=== PATIENT | male | born 1950 | race Caucasian/White ===

== ENCOUNTER 2017-10-01 07:48 | Day surgery (SDC) | payer MEDICARE, BC ==
[2017-10-01] MEDS ORDERED: EPINEPHRINE 1 MG/ML AMPUL SQ ONE (07:49)
[2017-10-01] MEDS ORDERED: NEOMYCIN/POLY./DEXAM OPTH OINT OPTH ONE (07:49)
[2017-10-01] MEDS ORDERED: TETRACAINE HCL 0.5% 15 ML OPTH BTL OPTH ONE (07:49)
[2017-10-01] MEDS ORDERED: PROPOFOL 10 MG/ML VIAL IV ONE (07:49)
[2017-10-01] MEDS ORDERED: LIDOCAINE 2% MDV (20MG/ML) 20ML VIAL IV ONE ×2 (07:49)
[2017-10-01] MEDS ORDERED: CIPROFLOXACIN HCL 0.0015 GM, PHENYLEPHRINE HCL 0.05 GM, KETOROLAC TROMETHAMINE 0.000625 GM MC ONE ×5 (12:45)
--- NOTE | 2017-10-01 16:21 | OP NOTE CHAMES ---
DATE OF PROCEDURE: 10/01/17 PREOPERATIVE DIAGNOSIS: Nuclear sclerotic and posterior subcapsular cataract, left eye. POSTOPERATIVE DIAGNOSIS: Nuclear sclerotic and posterior subcapsular cataract, left eye. OPERATION: Phacoemulsification of cataractous lens with implantation of intraocular lens. LENS IMPLANT USED: Larios Model PCB00 + 21.5 diopters. COMPLICATIONS: None. PROCEDURE IN DETAIL: Following a retrobulbar and facial block, the patient was prepped and draped in the usual fashion for eye surgery. A lid speculum was placed in the left eye after which a 2.4 mm tunnel wound was placed at the temporal limbus and dissected into clear cornea. A paracentesis was placed at 2 oclock hours to the left and right of the initial incision and the chamber deepened with Viscoelastic. The keratome was then used to enter the anterior chamber after which the continuous circular capsulorrhexis was accomplished without difficulty using a bent needle and a Utrata forceps. Hydrodissection and hydrodelineation of the lens was performed after which the nucleus of the lens was removed using the Phaco handpiece in the [id number] technique. The residual cortical material was irrigated and aspirated from the eye after which the bag and chamber were re-examined. The bag was re-inflated with Viscoelastic and the intraocular lens injected into the capsular bag where it centered well. The Viscoelastic was then copiously irrigated and aspirated from the eye after which the temporal tunnel wound and paracentesis were hydrated and the wounds were examined. They were noted to be watertight. The lid speculum was removed from the eye and the eye patched and shielded. The patient was transferred to the recovery room in satisfactory condition and given an appointment to be reexamined in the clinic later today or as directed by Dr. Vences. JOB NUMBER: [id number] [facility]
== END 2017-10-01 10:04 | disposition home or self-care (01) ==
LOC: SUR 07:48
PROVIDERS: ATTEND Ophthalmology
DX: H25.12 Age-related nuclear cataract, left eye (principal); H25.042 Posterior subcapsular polar age-related cataract, left eye; I10 Essential (primary) hypertension; E11.9 Type 2 diabetes mellitus without complications; Z79.84 Long term (current) use of oral hypoglycemic drugs; E78.00 Pure hypercholesterolemia, unspecified
CPT/HCPCS: J0171

== ENCOUNTER 2018-04-20 19:06 | Emergency (ER) | payer MEDICARE, BC ==
[2018-04-20] MEDS ORDERED: MORPHINE SULFATE 10 MG/ML VIAL IVP ONE (19:20)
[2018-04-20] MEDS ORDERED: ONDANSETRON HCL IV 4 MG/2 ML VIAL IVP ONE ×2 (19:20→21:15)
--- NOTE | 2018-04-20 19:26 | Emergency Department Record ---
History of Present Illness - General Chief Complaint: Abdominal Pain Stated Complaint: RT SIDE ABDOMINAL PAIN Time Seen by Provider: 04/20/18 19:20 Source: Patient Mode of Arrival: Ambulatory Limitations: No limitations - History of Present Illness Initial Comments: 67 yo male presents to ED for evaluation of intermittent RUQ pain symptoms that began 2 days ago. Patient reports that his pain symptoms improved 2 days ago with a heating pad to the RUQ, reports that his pain symptoms worsened today. Patient denies any precipitating factors (exertion, food), denies fevers, chills , cough, chest pain, rib pain, or difficulty breathing symptoms. Patient denies previous abdominal surgery. MD Complaint: Abdominal pain Onset/Timin -: Days(s) Location: RUQ Radiation: None Severity: Severe Quality: Aching Consistency: Constant Improves With: Nothing Worsens With: Nothing Associated Symptoms: Nausea Treatments Prior to Arrival: Other (heating pad) - Related Data Previous Rx's Medication Instructions Recorded Famotidine [Pepcid] 40 mg PO DAILY #30 tablet 04/20/18 Allergies Allergy/AdvReac Type Severity Reaction Status Date / Time No Known Drug Allergies Allergy Verified 04/20/18 19:14 Review of Systems Constitutional: Denies: Chills, Fever, Malaise, Night sweats Eyes: Denies: Eye discharge, Eye pain ENT: Denies: Congestion, Ear pain, Epistaxis Respiratory: Denies: Cough, Dyspnea Cardiovascular: Denies: Chest pain, Dyspnea on exertion Endocrine: Denies: Fatigue, Heat or cold intolerance Gastrointestinal: Reports: Abdominal pain, Nausea. Denies: Vomiting Genitourinary: Denies: Incontinence, Retention Musculoskeletal: Denies: Arthralgia, Back pain, Gout, Joint swelling Skin: Denies: Bruising, Change in color Neurological: Denies: Abnormal gait, Confusion, Headache Psychiatric: Denies: Anxiety Hematological/Lymphatic: Denies: Anemia, Blood Clots Past Medical History - SOCIAL HISTORY Smoking Status: Never smoker - RESPIRATORY Hx Respiratory Disorders: No - CARDIOVASCULAR Hx Cardio Disorders: Yes Hx Hypertension: Yes Hx Irregular Heartbeat: Yes (no treatment required per pt per cardilogist) Hx Palpitations: Yes (30 years ago, no treatment required, occurs occassional) Comment:: rx for cholesterol - NEURO Hx Neuro Disorders: No - GI Hx GI Disorders: Yes Hx Abdominal Pain: Yes (went to ER last summer, no findings, has occured once 2 months ago) Comment:: diverticulosis - Hx Genitourinary Disorders: No - ENDOCRINE Hx Endocrine Disorders: Yes Hx Diabetes: Yes Comment:: A1C runs 5.9-6.1 - MUSCULOSKELETAL Hx Musculoskeletal Disorders: No - PSYCH Hx Psych Problems: Yes Hx Anxiety: Yes (had attack once6-8 months ago) - HEMATOLOGY/ONCOLOGY Hx Hematology/Oncology Disorders: Yes Hx Cancer: Yes (Skin (Nose)) Hx Chemotherapy: No Hx Radiation Therapy: No Family Medical History Hx Cancer: Mother *Cancer Comment: bone marrow cancer Hx Heart Disease: Father *Heart Comment: rhumatic fever-enlarged heart Physical Exam - General General Appearance: Alert, Oriented x3, Cooperative, Moderate distress Limitations: No limitations - Head Head exam: Atraumatic, Normocephalic, Normal inspection Head exam detail: negative: Abrasion, Contusion, John's sign, General tenderness, Hematoma, Laceration - Eye Eye exam: Normal appearance. negative: Conjunctival injection, Periorbital swelling, Periorbital tenderness, Scleral icterus - ENT Ear exam: negative: Auricular hematoma, Auricular trauma Nasal Exam: negative: Active bleeding, Discharge, Dried blood, Foreign body Mouth exam: negative: Drooling, Laceration, Muffled voice, Tongue elevation - Neck Neck exam: Normal inspection. negative: Tenderness - Respiratory Respiratory exam: Normal lung sounds bilaterally. negative: Chest wall tenderness, Respiratory distress, Rhonchi, Stridor, Wheezes - Cardiovascular Cardiovascular Exam: Regular rate, Normal rhythm, Normal heart sounds - GI/Abdominal GI/Abdominal exam: Soft, Tenderness (TTP to the RUQ, no rebound, no guarding present.). negative: Rebound, Rigid - Rectal Rectal exam: Deferred - exam: Deferred - Extremities Extremities exam: Normal inspection. negative: Calf tenderness, Tenderness - Back Back exam: Denies: CVA tenderness (R), CVA tenderness (L) - Neurological Neurological exam: Alert, Normal gait, Oriented X3 - Psychiatric Psychiatric exam: Normal affect, Normal mood - Skin Skin exam: Normal color. negative: Abrasion Type of lesion: negative: abrasion Course - Reevaluation(s) Reevaluation #1: 04/20/18 19:25 Patient was seen and examined, as US is not available for evaluation of the GB, will obtain laboratory studies and CT imaging following analgesia and anti- emetics for his symptoms. Reevaluation #2: 04/20/18 20:00 Labs reviewed and are grossly unremarkable for an acute process. UA pending. Patient is going to CT at this time. Reevaluation #3: 04/20/18 21:16 CT Abdomen and Pelvis: Renal/Hepatic cysts Diverticulosis without diverticulitis Doudenal diverticulum Small adrenal nodule, recommend MRI as outpatient Patient and his SO were updated on CT imaging results (including need for addition MRI as outpatient for adrenal nodule), will adminster Zofran for nausea symptoms, EKG, and reassess. Patient and SO agree with the plan as discussed. Reevaluation #4: 04/20/18 21:29 EKG: NSR 58, PVCs are present LAD, IVCD no acute ST-T wave changes Reevaluation #5: 04/20/18 22:06 Patient was reassessed following GI coctail, reports that he is feeling much better and that he want to go at this time. Patient has a follow-up appointment with Dr. Temple at 9:40 in the morning. Will initiate PPI with instructions for outpatient EGD and possible US of the abdomen for further evaluation. Patient was instructed to return to ED if his symptoms worsen. Patient appears stable for discharge at this time. Medical Decision Making - Lab Data Result diagrams: 04/20/18 19:25 04/20/18 19:25 Disposition Disposition: Discharge Clinical Impression: Epigastric abdominal pain Disposition: Home, Self-Care Condition: (2) Stable Instructions: Epigastric Pain (ED) Additional Instructions: Return to ED if your symptoms worsen or if you have any concerns. Pepcid as directed. Follow-up with Dr. Temple tomorrow as scheduled. Ultrasound of the abdomen and possible EGD may be of benefit for further assessment of your pain symptoms. Prescriptions: Famotidine [Pepcid] 40 mg PO DAILY #30 tablet Forms: Patient Portal Access Time of Disposition: 22:10 Quality - Quality Measures Quality Measures: N/A - Blood Pressure Screening Does Patient Have Any of the Following: Active Dx of HTN Blood Pressure Classification: Hypertensive Reading Systolic Measurement: 193 Diastolic Measurement: 96 Screening for High Blood Pressure: Patient Exclusion, Hx of HTN [G9744]
[2018-04-20] MEDS ORDERED: 0.9 % SODIUM CHLORIDE 1000ML 1,000 ML IV SCH (19:30)
[2018-04-20 19:34] LABS: BASO % 0.2 % (0-6); EOS % 0.5 % (0-6); GRAN % 72.4 % (47-80); HEMATOCRIT 40.8 % (42.0-52.0); LYMPH % 19.2 % (16-45); MEAN CELL VOLUME 89.3 fl (81-97); MEAN CORPUSCULAR HEMOGLOBIN 30.6 pg (27-33); MEAN CORPUSCULAR HGB CONC 34.3 g/dl (32-36); MEAN PLATELET VOLUME 10.2 fl (7.4-10.4); MONO % 7.7 % (0-9); PLATELET COUNT 135 K/uL (130-400); RED BLOOD COUNT 4.57 M/uL (4.40-5.70); RED CELL DISTRIBUTION WIDTH 13.5 % (11.5-14.5); WHITE BLOOD COUNT W/O DIFF 8.1 K/uL (4.2-12.2)
[2018-04-20 19:46] LABS: BLOOD UREA NITROGEN 20 mg/dL (8-23); CREATININE 1.1 mg/dL (0.7-1.2); EST GLOMERULAR FILTRATION RATE > 60 mL/min
[2018-04-20 19:47] LABS: TOTAL PROTEIN 7.6 g/dL (6.6-8.7)
[2018-04-20 19:49] LABS: GLUCOSE,RANDOM 139 mg/dL (74-109)
[2018-04-20 19:52] LABS: ALB/GLOB RATIO 1.6 (1.1-1.8); ALBUMIN 4.7 g/dL (4.0-5.0); ALKALINE PHOSPHATASE 45 U/L (40-129); ALT/SGPT 25 U/L (<41); AST/SGOT 29 U/L (10.0-50.0); LIPASE 38 U/L (13-60)
[2018-04-20 20:50] LABS: URINE APPEARANCE CLEAR; URINE BILIRUBIN NEGATIVE (NEGATIVE); URINE BLOOD NEGATIVE (NEGATIVE); URINE COLOR YELLOW; URINE GLUCOSE (UA) NEGATIVE (NEGATIVE); URINE KETONE TRACE (NEGATIVE); URINE LEUKOCYTE ESTERASE NEGATIVE (NEGATIVE); URINE NITRITE NEGATIVE (NEGATIVE); URINE PROTEIN NEGATIVE (NEGATIVE); URINE UROBILINOGEN 0.2 E.U./dL (0.20 - 1.00)
[2018-04-20] MEDS: MAGNESIUM HYDROXIDE/AL HYDROX 30 ML, LIDOCAINE VISC 2% 15ML 15 ML PO ONE ×4 (21:08→21:55)
== END 2018-04-20 22:23 | disposition home or self-care (01) ==
LOC: ER 19:06
DX: R10.13 Epigastric pain (principal); R11.0 Nausea; I10 Essential (primary) hypertension; E11.9 Type 2 diabetes mellitus without complications
CPT/HCPCS: 99284 ×2; 96376; 96374; 96375; 83690; 85025; 80053; 81003; 84484; 74177; 93005; 93010; Q9967; J2405; J2270; J7030

== ENCOUNTER 2019-07-08 05:25 | Emergency (ER) | payer MEDICARE, BC ==
[2019-07-08] MEDS ORDERED: ONDANSETRON HCL IV 4 MG/2 ML VIAL IVP ONE ×3 (05:37→07:32)
[2019-07-08] MEDS ORDERED: 0.9 % SODIUM CHLORIDE 1,000 ML BAG IV ONE (05:37)
[2019-07-08] MEDS ORDERED: MORPHINE SULFATE 5 MG/ML VIAL IVP ONE (05:40)
--- NOTE | 2019-07-08 05:43 | Emergency Department Record ---
History of Present Illness <José Miguel Osorio - Last Filed: 07/08/19 09:05> - General Source: Patient Mode of Arrival: Ambulatory Limitations: No limitations - History of Present Illness Initial Comments: 69 yo male presents with abdominal pain. The onset was 1am. The pain is in the epigastric area with some radiation to the right side. The pain is associated with nausea and dry heaves. He reports that he has had pancreatitis several times in the last 2-3 years. He states in October he was diagnosed at [facility] pancreatitis of unknown cause. He does not drink. No gall stones. No specific medication was found to cause his symptoms. He reports having US, CT, HIDA, and endoscopy. Dr Temple is his PCP. No chest pain, no back pain. His did have a few loose stools the last 2 days. No blood in the stools. He has a history of HTN, DM, elevated cholesterol. He had a cardiology work up in October during his hospitalization and followed up with a 30 day monitor. He also had a stress test after the October admission to [facility] Complaint: Abdominal pain -: Hour(s) (4) Location: Epigastric Radiation: RUQ Migration to: RUQ Severity: Moderate Quality: Aching Consistency: Constant Improves With: Nothing Worsens With: Eating Associated Symptoms: Anorexia, Nausea, Vomiting <KALIE MEREDITH - Last Filed: 07/08/19 18:31> - General Chief Complaint: Abdominal Pain Stated Complaint: ABDOMINAL PAIN Time Seen by Provider: 07/08/19 05:27 - Related Data Home Medications Medication Instructions Recorded Confirmed Last Taken C,E,Zinc,Copper 11/Qwyma7q/Lut 1 cap PO DAILY 07/08/19 07/08/19 07/07/19 [Ocuvite Adult 50 Plus Softgel] Hyoscyamine Sulfate [Levsin Odt] 1 tab PO ASDIR 07/08/19 07/08/19 07/07/19 RX: Metoprolol Succinate 25 mg PO DAILY 07/08/19 07/08/19 07/07/19 RX: Simvastatin 40 mg PO DAILY 07/08/19 07/08/19 07/07/19 Previous Rx's Medication Instructions Recorded Sucralfate [Carafate] 1 gm PO QID #28 tablet 07/08/19 Allergies Allergy/AdvReac Type Severity Reaction Status Date / Time No Known Drug Allergies Allergy Verified 04/20/18 19:14 Past Medical History - SOCIAL HISTORY Smoking Status: Never smoker - RESPIRATORY Hx Respiratory Disorders: No - CARDIOVASCULAR Hx Cardio Disorders: Yes Hx Hypertension: Yes Hx Irregular Heartbeat: Yes (no treatment required per pt per cardilogist) Hx Palpitations: Yes (30 years ago, no treatment required, occurs occassional) Comment:: rx for cholesterol - NEURO Hx Neuro Disorders: No - GI Hx GI Disorders: Yes Hx Abdominal Pain: Yes (went to ER last summer, no findings, has occured once 2 months ago) Comment:: diverticulosis - Hx Genitourinary Disorders: No - ENDOCRINE Hx Endocrine Disorders: Yes Hx Diabetes: Yes Comment:: A1C runs 5.9-6.1 - MUSCULOSKELETAL Hx Musculoskeletal Disorders: No - PSYCH Hx Psych Problems: Yes Hx Anxiety: Yes (had attack once6-8 months ago) - HEMATOLOGY/ONCOLOGY Hx Hematology/Oncology Disorders: Yes Hx Cancer: Yes (Skin (Nose)) Hx Chemotherapy: No Hx Radiation Therapy: No <KALIE MEREDITH - Last Filed: 07/08/19 18:31> Family Medical History Hx Cancer: Mother *Cancer Comment: bone marrow cancer Hx Heart Disease: Father *Heart Comment: rhumatic fever-enlarged heart <KALIE MEREDITH - Last Filed: 07/08/19 18:31> Course Vital Signs 07/08/19 07/08/19 05:33 06:30 Temperature 97.9 F Pulse Rate [ 51 L 83 Pulse Ox Probe] Respiratory 20 Rate Blood Pressure 193/79 163/95 [Left Arm] Pulse Ox 96 100 - Reevaluation(s) Reevaluation #2: The patient is doing better at this time. His CT did return with no cause for the pain and was basically normal with no surgical pathology. I did discuss the plan with the patient to F/U with his PCP. Presently the patient is doing a lot better and only has very mild upper abdominal discomfort. He does feel comfortable with going home and following up with his PCP. 07/08/19 07:26 Reevaluation #3: The patient did have a return of significant nausea. Due to that I did give him a dose of Phenergan. He did have an irregular heart beat on the monitor and a 2nd EKG was done that did not have any significant changes. The patient has a hx of ectopy and it was unchanged from an old EKG. He has not had any CP or SOB or OLIVIA with the AP. 07/08/19 08:14 Reevaluation #4: The patient is doing very well at this time. He denies any pain or nausea. The patient does appear to be in atrial bigeminy which is chronic for him. Presently he is up walking and hungry and he denies any nausea or abdominal discomfort. I did discuss the plan to return to the ER for any worsening symptoms. I strongly doubt any significant issue relating to his heart due to the fact his bigeminy is chronic, he has had a neg nuclear stress test this year along with a cardiac echo and holter monitor. 07/08/19 09:01 <José Miguel Osorio - Last Filed: 07/08/19 09:05> Vital Signs 07/08/19 05:33 Temperature 97.9 F Pulse Rate [ 51 L Pulse Ox Probe] Respiratory 20 Rate Blood Pressure 193/79 [Left Arm] Pulse Ox 96 - Reevaluation(s) Reevaluation #1: EKG #1: 05:44 Rate: 70 Rhythm: Ventricular bigemny [place]: Left Intervals: IVCD, OR 202, Qt 504 ST segments: Poor R wave progression, No acute ST abnormalities Prior: 04/20/18 No new changes. [facility] was reviewed. The patient had an EP consultation for possible AV block. Bigemny noted in EP consultation as well. No 2nd degree block. 07/08/19 06:08 CBC reviewed No acute process The CMP was reviewed. No significant abnormality The Lipase is normal [facility] reviewed HIDA scan in 2018 Normal EF of gall bladder CT scan Abdomen. diverticulosis 10/07/18 MRI of the Abdomen. Possible narrow CBD. NO stones. 10/07/18 Lipase was 4484 10/20/18 EGD by Felipe. No abnormality found 07/08/19 06:22 The labs were reviewed with the patient. The patient reports his nausea and pain are improved but not gone. Given the pain a CT of the abdomen was ordered. 07/08/19 07:[address] is pending. The case was signed out to Dr Osorio at shift turn over. <KALIE MEREDITH - Last Filed: 07/08/19 18:31> Medical Decision Making - Lab Data Result diagrams: 07/08/19 05:40 07/08/19 05:40 Lab Results 07/08/19 07/08/19 Range/Units 05:40 05:40 WBC 7.8 (4.2-12.2) K/uL RBC 4.51 (4.40-5.70) M/uL Hgb 13.8 L (14.0-18.0) gm/dl Hct 40.6 L (42.0-52.0) % MCV 90.0 (81-97) fl MCH 30.5 (27-33) pg MCHC 34.0 (32-36) g/dl RDW 13.3 (11.5-14.5) % Plt Count 121 L (130-400) K/uL MPV 10.6 H (7.4-10.4) fl Gran % 75.8 (47-80) % Lymphocytes % 17.9 (16-45) % Monocytes % 5.6 (0-9) % Eosinophils % 0.4 (0-6) % Basophils % 0.3 (0-6) % Absolute Neutrophils 5.94 Sodium 138 (136-145) mmol/L Potassium 4.1 (3.4-4.5) mmol/L Chloride 101 (98-107) mmol/L Carbon Dioxide 25.0 (22-29) mmol/L Anion Gap 12.0 (7-16) BUN 21 (8-23) mg/dL Creatinine 1.0 (0.7-1.2) mg/dL Estimated GFR > 60 mL/min Random Glucose 184 H (74-109) mg/dL Calcium 9.2 (8.8-10.2) mg/dL Total Bilirubin 0.40 (0.2-1.0) mg/dL AST 20 (10.0-50.0) U/L ALT 18 (<41) U/L Alkaline Phosphatase 48 (40-129) U/L Total Protein 7.2 (6.6-8.7) g/dL Albumin 4.4 (4.0-5.0) g/dL Globulin 2.8 (1.4-4.8) gm/dL Albumin/Globulin Ratio 1.6 (1.1-1.8) Lipase 43 (13-60) U/L <José Miguel Osorio - Last Filed: 07/08/19 09:05> - Lab Data Result diagrams: 07/08/19 05:40 07/08/19 05:40 <KALIE MEREDITH - Last Filed: 07/08/19 18:31> Disposition Disposition: Discharge Time of Disposition: 07:28 <José Miguel Osorio - Last Filed: 07/08/19 09:05> Disposition: Discharge <KALIE MEREDITH - Last Filed: 07/08/19 18:31> Clinical Impression: Abdominal pain Qualifiers: Abdominal location: unspecified location Qualified Code(s): R10.9 - Unspecified abdominal pain Disposition: Home, Self-Care Condition: (1) Good Instructions: Abdominal Pain (ED) Additional Instructions: Please continue your regular medicines and please take the Carafate as directed. Please return to the ER for any worsening pain, vomiting, or fever. Prescriptions: Sucralfate [Carafate] 1 gm PO QID #28 tablet Forms: Patient Portal Access Quality - Quality Measures Quality Measures: N/A - Blood Pressure Screening View Details: Yes Does Patient Have Any of the Following: Active Dx of HTN Blood Pressure Classification: Hypertensive Reading Systolic Measurement: 176 Diastolic Measurement: 79 Screening for High Blood Pressure: Patient Exclusion, Hx of HTN [G9744] <José Miguel Osorio - Last Filed: 07/08/19 09:05> - Quality Measures Quality Measures: N/A - Blood Pressure Screening Does Patient Have Any of the Following: No, Active Dx of HTN Blood Pressure Classification: Hypertensive Reading Systolic Measurement: 176 Diastolic Measurement: 79 Screening for High Blood Pressure: Patient Exclusion, Hx of HTN [G9744] <KALIE MEREDITH - Last Filed: 07/08/19 18:31>
[2019-07-08 05:48] LABS: ABSOLUTE NEUTROPHIL COUNT 5.94; BASO % 0.3 % (0-6); EOS % 0.4 % (0-6); GRAN % 75.8 % (47-80); HEMATOCRIT 40.6 % (42.0-52.0); HEMOGLOBIN 13.8 gm/dl (14.0-18.0); LYMPH % 17.9 % (16-45); MEAN PLATELET VOLUME 10.6 fl (7.4-10.4); MONO % 5.6 % (0-9); PLATELET COUNT 121 K/uL (130-400); RED BLOOD COUNT 4.51 M/uL (4.40-5.70); RED CELL DISTRIBUTION WIDTH 13.3 % (11.5-14.5); WHITE BLOOD COUNT W/O DIFF 7.8 K/uL (4.2-12.2)
[2019-07-08 05:49] LABS: MEAN CORPUSCULAR HEMOGLOBIN 30.5 pg (27-33)
[2019-07-08 06:02] LABS: BLOOD UREA NITROGEN 21 mg/dL (8-23); EST GLOMERULAR FILTRATION RATE > 60 mL/min
[2019-07-08 06:03] LABS: LIPASE 43 U/L (13-60); TOTAL PROTEIN 7.2 g/dL (6.6-8.7)
[2019-07-08 06:05] LABS: GLUCOSE,RANDOM 184 mg/dL (74-109)
[2019-07-08 06:08] LABS: ALB/GLOB RATIO 1.6 (1.1-1.8); ALBUMIN 4.4 g/dL (4.0-5.0); ALKALINE PHOSPHATASE 48 U/L (40-129); ALT/SGPT 18 U/L (<41); AST/SGOT 20 U/L (10.0-50.0)
[2019-07-08] MEDS ORDERED: MAGNESIUM HYDROXIDE/AL HYDROX 30 ML, LIDOCAINE VISC 2% 15ML 15 ML PO ONE ×2 (06:22)
--- NOTE | 2019-07-08 07:15 | CT SCAN REPORT ---
EXAMINATION: CT Abdomen and Pelvis with IV Contrast EXAM DATE: 07/08/2019 7:02 AM TECHNIQUE: CT imaging of the abdomen and pelvis was performed with intravenous contrast. Coronal and sagittal images were reconstructed. IV Contrast: The amount and type of contrast are recorded in the medical record. INDICATION: epigastric pain COMPARISON: Abdomen ultrasound 04/21/2018, AP CT 04/20/2018 ENCOUNTER: Not applicable CT ABDOMEN AND PELVIS FINDINGS: Lung Bases: Included extent of the lung bases are clear. Coronary artery calcifications. Hepatobiliary: The liver has a normal size with a smooth surface. The hepatic and portal veins appear patent. Stable subcentimeter hepatic hypodensity too small to characterize. No gallstones. Probable gallbladder sludge Pancreas: The pancreas is normal. Spleen: The spleen is not enlarged. Multiple granuloma Adrenals: Stable 1.7 cm left adrenal nodule Kidneys, Ureters, & Bladder: Stable right renal cysts. No renal or ureteral calculi. No obstructive u ropathy. Both ureters have a normal caliber and the urinary bladder is unremarkable. Gastrointestinal: Stomach unremarkable. Small duodenal diverticulum. No bowel obstruction. Normal emiliana endix. Mild diverticulosis coli. No diverticulitis. Reproductive Organs: Unremarkable Lymphatic System: There is no adenopathy within the abdomen or pelvis. Nonspecific periaortic lymph n odes largest 6.6 mm short axis Vasculature: Normal caliber abdominal aorta. Peritoneum: No free fluid, free air, or inflammation Abdominal Wall & Musculoskeletal: No suspicious bone lesions. IMPRESSION: 1. No acute abnormality 2. Coronary artery disease 3. Stable subcentimeter hepatic hypodensity 4. Gallbladder sludge 5. Duodenal diverticulum 6. Stable right renal cyst 7. Diverticulosis coli 8. Stable 1.7 cm left adrenal nodule 9. Granulomatous Dictated by: Fox Sparks MD on 07/08/2019 7:02 AM. .
[2019-07-08] MEDS ORDERED: PROMETHAZINE HCL 12.5 MG in 0.9 % SODIUM CHLORIDE 100ML 100 ML IVPB ONE (07:32)
[2019-07-08] MEDS ORDERED: SUCRALFATE 1 G/10 ML UD PO ONE (07:58)
== END 2019-07-08 09:06 | disposition home or self-care (01) ==
LOC: ER 05:25
DX: R10.13 Epigastric pain (principal); R11.2 Nausea with vomiting, unspecified; I10 Essential (primary) hypertension; E11.9 Type 2 diabetes mellitus without complications
CPT/HCPCS: 99284 ×2; 96365; 96375; 83690; 85025; 80053; 84484; 74177; 93005; 93010; Q9967; J2405; J2550; J7030

== ENCOUNTER 2019-07-17 03:23 | Emergency (ER) | payer MEDICARE, BC ==
[2019-07-17] MEDS ORDERED: ONDANSETRON HCL IV 4 MG/2 ML VIAL IV ONE (03:44)
[2019-07-17] MEDS ORDERED: MORPHINE SULFATE 5 MG/ML VIAL IVP ONE (03:45)
--- NOTE | 2019-07-17 03:53 | Emergency Department Record ---
History of Present Illness - General Chief Complaint: Abdominal Pain Stated Complaint: LUQ PAIN Time Seen by Provider: 07/17/19 03:35 Source: Patient Mode of Arrival: Ambulatory Limitations: No limitations - History of Present Illness Initial Comments: The patient is here due to RUQ AP that started last evening 8 hours ago after eating pizza. The pain is sharp and stabbing and does radiate to the back at times. The patient has had nausea and vomiting x 2 with it tonight. The patient has a hx of similar issues and did have almost the exact same issue last week on the 6th when he presented to the ER with the exact same issues. His workup then was neg including and abdominal CT. The patient does have a hx of pancreatitis but does not drink alcohol and has no hx of gallstones. MD Complaint: Abdominal pain Onset/Timin -: Hour(s) Location: RUQ Severity scale (1-10): 7 Quality: Aching, Cramping Consistency: Constant Improves With: Nothing Worsens With: Other Associated Symptoms: Denies other symptoms - Related Data Allergies Allergy/AdvReac Type Severity Reaction Status Date / Time No Known Drug Allergies Allergy Verified 04/20/18 19:14 Travel Screening - Travel/Exposure Within Last 30 Days Have you traveled within the last 30 days?: No - Travel/Exposure Within Last Year Have you traveled outside the [place] in the last year?: No - Additonal Travel Details Have you been exposed to anyone with a communicable illness?: No - Travel Symptoms Symptom Screening: None Review of Systems Constitutional: Denies: Chills, Fever Eyes: Denies: Eye discharge ENT: Denies: Congestion Respiratory: Denies: Cough, Dyspnea Cardiovascular: Denies: Chest pain Endocrine: Denies: Fatigue Gastrointestinal: Reports: Abdominal pain, Nausea, Vomiting. Denies: Diarrhea Genitourinary: Denies: Dysuria Musculoskeletal: Denies: Arthralgia Skin: Denies: Bruising Past Medical History - SOCIAL HISTORY Smoking Status: Never smoker Alcohol Use: None Drug Use: None - RESPIRATORY Hx Respiratory Disorders: No - CARDIOVASCULAR Hx Cardio Disorders: Yes Hx Hypertension: Yes Hx Irregular Heartbeat: Yes (no treatment required per pt per cardilogist) Hx Palpitations: Yes (30 years ago, no treatment required, occurs occassional) Comment:: rx for cholesterol - NEURO Hx Neuro Disorders: No - GI Hx GI Disorders: Yes Hx Abdominal Pain: Yes (went to ER last summer, no findings, has occured once 2 months ago) - Hx Genitourinary Disorders: No - ENDOCRINE Hx Endocrine Disorders: Yes Hx Diabetes: Yes Comment:: A1C runs 5.9-6.1 - MUSCULOSKELETAL Hx Musculoskeletal Disorders: No - PSYCH Hx Psych Problems: Yes Hx Anxiety: Yes (had attack once6-8 months ago) - HEMATOLOGY/ONCOLOGY Hx Hematology/Oncology Disorders: Yes Hx Cancer: Yes (Skin (Nose)) Hx Chemotherapy: No Hx Radiation Therapy: No Family Medical History Any Significant Family History?: Yes Hx Cancer: Mother *Cancer Comment: bone marrow cancer Hx Heart Disease: Father *Heart Comment: rhumatic fever-enlarged heart Physical Exam - General General Appearance: Alert, Oriented x3, Cooperative, No acute distress - Head Head exam: Atraumatic, Normocephalic, Normal inspection - Eye Eye exam: Normal appearance, PERRL, EOMI - ENT Throat exam: Normal inspection. negative: Tonsillar erythema, Tonsillar exudate - Neck Neck exam: Normal inspection, Full ROM. negative: Tenderness - Respiratory Respiratory exam: Normal lung sounds bilaterally. negative: Respiratory distress - Cardiovascular Cardiovascular Exam: Regular rate, Normal rhythm, Normal heart sounds - GI/Abdominal GI/Abdominal exam: Soft, Normal bowel sounds. negative: Distended, Guarding, Rebound, Rigid, Tenderness - Extremities Extremities exam: Normal inspection, Full ROM, Normal capillary refill. negative: Tenderness - Neurological Neurological exam: Alert, Normal gait. negative: Abnormal gait, Motor sensory deficit - Psychiatric Psychiatric exam: negative: Anxious - Skin Skin exam: negative: Rash Course Vital Signs 07/17/19 07/17/19 03:26 03:42 Temperature 98.3 F Pulse Rate [ 33 L 62 Left] Respiratory 16 Rate Blood Pressure 173/73 [Left] Pulse Ox 96 - Reevaluation(s) Reevaluation #1: The patient is doing a lot better at this time. His pain has resolved and his nausea is gone also. The patient feels much better and would like to go home. 07/17/19 04:28 Reevaluation #2: The patient is doing very well at this time. His symptoms have gone away 100%. I did discuss the fact that this episode seems to be his gallbladder since it was precipitated by eating pizza and the pain is located over the RUQ. I did discuss with the patient that the safest course of action is to get an US this AM at another hospital but the patient is refusing that plan. I then discussed the need to return tomorrow for the test. The patient does appear to be in atrial bigeminy on the monitor and EKG but that is a chronic condition for him and he denies ANY CP, SOB, OLIVIA or sweating. I strongly doubt any cardiac issue contributing to the RUQ pain that he was experiencing. On repeat exam the patient has NO abdominal tenderness, guarding or rebound. 07/17/19 04:48 Reevaluation #3: I did offer to refer the patient to cardiology due to the atrial bigeminy but the patient is refusing that plan. He states he had all the tests done with Dr. Moran this year in October and is refusing that plan. 07/17/19 05:00 Medical Decision Making - Data Complexity MDM Data: Labs Ordered and/or Reviewed, EKG Ordered and/or Reviewed - Lab Data Result diagrams: 07/17/19 03:50 07/17/19 03:50 Lab Results 07/17/19 Range/Units 03:48 C-Reactive Protein Cancelled - EKG Data -: EKG Interpreted by Me EKG: No Acute Changes, Unchanged From Previous (The patient is in atrial bigeminy which is chronic for the patient.) Disposition Disposition: Discharge Clinical Impression: Abdominal pain Disposition: Home, Self-Care Condition: (2) Stable Instructions: Abdominal Pain (ED) Additional Instructions: Please do NOT eat any fatty or fried foods and no pizza. Please return tomorrow for recheck and for the abdominal US. If you choose not to return tomorrow please see your family doctor to get the US ordered and also possibly a HIDA scan. Return to the ER sooner for any worsening symptoms. Forms: Patient Portal Access Time of Disposition: 04:48 Quality - Quality Measures Quality Measures: N/A - Blood Pressure Screening View Details: Yes Does Patient Have Any of the Following: Active Dx of HTN Blood Pressure Classification: Hypertensive Reading Systolic Measurement: 173 Diastolic Measurement: 73 Screening for High Blood Pressure: Patient Exclusion, Hx of HTN [G9744]
[2019-07-17 04:01] LABS: ABSOLUTE NEUTROPHIL COUNT 5.23; BASO % 0.4 % (0-6); EOS % 0.6 % (0-6); GRAN % 73.3 % (47-80); HEMATOCRIT 38.4 % (42.0-52.0); LYMPH % 19.1 % (16-45); MEAN CELL VOLUME 89.9 fl (81-97); MEAN CORPUSCULAR HEMOGLOBIN 30.4 pg (27-33); MEAN CORPUSCULAR HGB CONC 33.9 g/dl (32-36); MONO % 6.6 % (0-9); PLATELET COUNT 154 K/uL (130-400); RED BLOOD COUNT 4.27 M/uL (4.40-5.70); RED CELL DISTRIBUTION WIDTH 13.1 % (11.5-14.5); WHITE BLOOD COUNT W/O DIFF 7.1 K/uL (4.2-12.2)
[2019-07-17 04:05] LABS: URINE APPEARANCE CLEAR; URINE BILIRUBIN NEGATIVE (NEGATIVE); URINE BLOOD NEGATIVE (NEGATIVE); URINE COLOR YELLOW; URINE GLUCOSE (UA) NEGATIVE (NEGATIVE); URINE KETONE NEGATIVE (NEGATIVE); URINE LEUKOCYTE ESTERASE NEGATIVE (NEGATIVE); URINE NITRITE NEGATIVE (NEGATIVE); URINE PROTEIN TRACE (NEGATIVE); URINE UROBILINOGEN 0.2 E.U./dL (0.20 - 1.00)
[2019-07-17 04:12] LABS: BLOOD UREA NITROGEN 18 mg/dL (8-23); CREATININE 1.1 mg/dL (0.7-1.2); EST GLOMERULAR FILTRATION RATE > 60 mL/min
[2019-07-17 04:13] LABS: LIPASE 41 U/L (13-60); TOTAL PROTEIN 6.7 g/dL (6.6-8.7)
[2019-07-17 04:15] LABS: GLUCOSE,RANDOM 164 mg/dL (74-109)
[2019-07-17 04:17] LABS: ALT/SGPT 17 U/L (<41); AST/SGOT 19 U/L (10.0-50.0)
[2019-07-17 04:18] LABS: ALKALINE PHOSPHATASE 42 U/L (40-129); BILIRUBIN,DIRECT < 0.2 mg/dL (0-0.3); C-REACTIVE PROTEIN 0.33 mg/dL (<0.5)
== END 2019-07-17 05:23 | disposition home or self-care (01) ==
LOC: ER 03:23
DX: R10.11 Right upper quadrant pain (principal); R11.2 Nausea with vomiting, unspecified; I10 Essential (primary) hypertension; E11.9 Type 2 diabetes mellitus without complications
CPT/HCPCS: 80048; 80076; 81003; 83605; 83690; 84484; 85025; 86140; 93005; 93010; J2405

== ENCOUNTER 2019-07-17 16:43 | Day surgery (SDC) | payer MEDICARE, BC ==
[2019-07-17] MEDS ORDERED: ONDANSETRON HCL IV 4 MG/2 ML VIAL IVP ONE ×3 (16:49→18:43)
[2019-07-17] MEDS ORDERED: 0.9 % SODIUM CHLORIDE 1000ML 1,000 ML IV ONE (16:49)
--- NOTE | 2019-07-17 17:00 | Emergency Department Record ---
History of Present Illness - General Chief Complaint: Abdominal Pain Stated Complaint: ABD PAIN/VOMITTING Time Seen by Provider: 07/17/19 16:49 Source: Patient, Family Mode of Arrival: Ambulatory Limitations: No limitations - History of Present Illness Initial Comments: 69 yo male returns to the ED with nausea, vomiting and abdominal pain. The patient was seen in the ED this morning. He was also seen on 07/08/19. He has had recurrent RUQ pain, vomiting, and pancreatitis. He does not drink alcohol. He has had sludge in his gall bladder on US but no stones (2018 study). He has been admitted to [facility] in the past undergoing extensive work up. Last night it was after eating pizza the evening prior. He developed the symptoms in the last evening and persisted until he was seen in the ED. He was similarly eating pizza on the when he presented. His abdominal CT was negative for acute process on the . He was discharged home in the bag sewer and took a three hour nap. He had a return of the symptoms as soon as he woke up and began vomiting with the same RUQ pain. Dr Temple is his PCP. Complaint: Abdominal pain, Other (Vomiting) -: Days(s) (1) Location: RUQ, RLQ Radiation: RUQ, RLQ Migration to: RUQ Severity: Moderate Quality: Aching, Sharp, Stabbing Consistency: Constant Improves With: Nothing Worsens With: Nothing Associated Symptoms: Anorexia - Related Data Allergies Allergy/AdvReac Type Severity Reaction Status Date / Time No Known Drug Allergies Allergy Verified 07/17/19 17:10 Review of Systems Constitutional: Denies: Chills, Fever, Malaise, Weakness Eyes: Denies: Eye discharge ENT: Denies: Congestion, Throat pain Respiratory: Denies: Cough, Dyspnea Cardiovascular: Denies: Chest pain, Palpitations, Syncope Endocrine: Denies: Fatigue, Polydipsia, Polyuria Gastrointestinal: Reports: As per HPI, Abdominal pain, Nausea, Vomiting. Denies: Diarrhea Genitourinary: Denies: Dysuria, Frequency, Hematuria Musculoskeletal: Denies: Arthralgia, Back pain, Myalgia Skin: Denies: Bruising, Change in color, Rash Neurological: Denies: Headache Psychiatric: Denies: Anxiety Hematological/Lymphatic: Denies: Easy bleeding, Easy bruising Past Medical History - SOCIAL HISTORY Smoking Status: Never smoker Drug Use: None - RESPIRATORY Hx Respiratory Disorders: No - CARDIOVASCULAR Hx Cardio Disorders: Yes Hx Hypertension: Yes Hx Irregular Heartbeat: Yes (no treatment required per pt per cardilogist) Hx Palpitations: Yes (30 years ago, no treatment required, occurs occassional) Comment:: rx for cholesterol - NEURO Hx Neuro Disorders: No - GI Hx GI Disorders: Yes Hx Abdominal Pain: Yes (went to ER last summer, no findings, has occured once 2 months ago) - Hx Genitourinary Disorders: No - ENDOCRINE Hx Endocrine Disorders: Yes Hx Diabetes: Yes Comment:: A1C runs 5.9-6.1 - MUSCULOSKELETAL Hx Musculoskeletal Disorders: No - PSYCH Hx Psych Problems: Yes Hx Anxiety: Yes (had attack once6-8 months ago) - HEMATOLOGY/ONCOLOGY Hx Hematology/Oncology Disorders: Yes Hx Cancer: Yes (Skin (Nose)) Hx Chemotherapy: No Hx Radiation Therapy: No Family Medical History Hx Cancer: Mother *Cancer Comment: bone marrow cancer Hx Heart Disease: Father *Heart Comment: rhumatic fever-enlarged heart Physical Exam - General General Appearance: Alert, Oriented x3, Cooperative, No acute distress Limitations: No limitations - Head Head exam: Atraumatic, Normal inspection - Eye Eye exam: Normal appearance, PERRL. negative: Conjunctival injection, Scleral icterus - ENT ENT exam: Normal exam Ear exam: Normal external inspection Nasal Exam: Normal inspection Mouth exam: Normal external inspection - Neck Neck exam: Normal inspection - Respiratory Respiratory exam: Normal lung sounds bilaterally. negative: Accessory muscle use, Decreased breath sounds, Prolonged expiratory, Respiratory distress, Rhonchi, Stridor, Wheezes - Cardiovascular Cardiovascular Exam: Other (Long standing bigemny, irregular at times). negative: Normal rhythm Peripheral Pulses: 2+: Radial (R), Radial (L) - GI/Abdominal GI/Abdominal exam: Soft, Tenderness (mild RUQ tenderness). negative: Distended, Guarding, Rebound, Rigid - Rectal Rectal exam: Deferred - exam: Deferred - Extremities Extremities exam: Normal inspection - Back Back exam: Denies: CVA tenderness (R), CVA tenderness (L) - Neurological Neurological exam: Alert, Oriented X3 - Psychiatric Psychiatric exam: Normal affect, Normal mood - Skin Skin exam: Dry, Intact, Normal color, Warm Course - Reevaluation(s) Reevaluation #1: Prior records reviewed See HPI 07/17/19 17:21 07/17/19 17:49 The labs were reviewed The CBC,CMP and Lipase are normal 07/17/19 18:06 Given the recurrent RUQ with certain foods and sludge on prior US, the patient will be admitted, US in the AM, Surgery consult and decide from that point in time. The case was discussed with Dr Bejarano He will consult in the morning. The patient will be kept NPO. The case was discussed with Cynthia Morejon for admission 07/17/19 18:15 EKG #1: 18:16 Rate: 77 Rhythm: sinus with ventricular bigemny [place]: L Intervals: Qtc 492 ST segments: no acite abnormality 07/17/19 18:24 Medical Decision Making - Lab Data Result diagrams: 07/17/19 17:00 07/17/19 17:00 Disposition Disposition: Admit Clinical Impression: RUQ pain Abdominal pain Qualifiers: Abdominal location: right upper quadrant Qualified Code(s): R10.11 - Right upper quadrant pain Disposition: Still a Patient at [facility] Decision to Admit: Admit from ER Decision to Admit Date: 07/17/19 Decision to Admit Time: 18:11 Condition: (2) Stable Forms: Patient Portal Access Time of Disposition: 18:11 Quality - Quality Measures Quality Measures: N/A - Blood Pressure Screening Does Patient Have Any of the Following: No Blood Pressure Classification: Hypertensive Reading Systolic Measurement: 173 Diastolic Measurement: 99 Screening for High Blood Pressure: Patient Exclusion, Hx of HTN [G9744]
[2019-07-17] MEDS ORDERED: MORPHINE SULFATE 5 MG/ML VIAL IVP ONE (17:07)
[2019-07-17 17:13] LABS: HEMATOCRIT 40.1 % (42.0-52.0); HEMOGLOBIN 13.6 gm/dl (14.0-18.0); MEAN CELL VOLUME 89.3 fl (81-97); MEAN CORPUSCULAR HGB CONC 33.9 g/dl (32-36); MEAN PLATELET VOLUME 9.9 fl (7.4-10.4); PLATELET COUNT 157 K/uL (130-400); RED BLOOD COUNT 4.49 M/uL (4.40-5.70); RED CELL DISTRIBUTION WIDTH 13.3 % (11.5-14.5); WHITE BLOOD COUNT W/O DIFF 11.4 K/uL (4.2-12.2)
[2019-07-17 17:17] LABS: MEAN CORPUSCULAR HEMOGLOBIN 30.2 pg (27-33)
[2019-07-17 17:22] LABS: BLOOD UREA NITROGEN 17 mg/dL (8-23); EST GLOMERULAR FILTRATION RATE > 60 mL/min
[2019-07-17 17:23] LABS: LIPASE 24 U/L (13-60); TOTAL PROTEIN 7.3 g/dL (6.6-8.7)
[2019-07-17 17:25] LABS: GLUCOSE,RANDOM 209 mg/dL (74-109)
[2019-07-17 17:27] LABS: ALB/GLOB RATIO 1.4 (1.1-1.8); ALBUMIN 4.2 g/dL (4.0-5.0); ALKALINE PHOSPHATASE 49 U/L (40-129); ALT/SGPT 17 U/L (<41); AST/SGOT 20 U/L (10.0-50.0)
[2019-07-17] MEDS ORDERED: EPHEDRINE SULFATE 50 MG/ML ML IV ONE (18:43)
[2019-07-17] MEDS ORDERED: MIDAZOLAM HCL 2MG/2ML VIAL IV ONE (18:43)
[2019-07-17] MEDS ORDERED: FENTANYL PF 100MCG/2ML VIAL IV ONE (18:43)
[2019-07-17] MEDS ORDERED: ROCURONIUM BROMIDE 50MG/5ML VIAL IV ONE (18:43)
[2019-07-17] MEDS ORDERED: MORPHINE SULFATE 5 MG/ML VIAL IVP PRN ×2 (18:43→20:12)
[2019-07-17] MEDS ORDERED: GLYCOPYRROLATE 0.2 MG/ML ML IV ONE (18:43)
[2019-07-17] MEDS ORDERED: NEOSTIGMINE 1 MG/1 ML,10ML VIAL IV ONE (18:43)
[2019-07-17] MEDS ORDERED: SEVOFLURANE 250 ML INH ONE (18:43)
[2019-07-17] MEDS ORDERED: SUCCINYLCHOLINE 20 MG/ML 10ML IVP ONE (18:43)
[2019-07-17] MEDS ORDERED: ONDANSETRON HCL IV 4 MG/2 ML VIAL IVP PRN (18:43)
[2019-07-17] MEDS ORDERED: LIDOCAINE 2% MDV (20MG/ML) 20ML VIAL IV ONE (18:43)
[2019-07-17] MEDS ORDERED: PROPOFOL 10 MG/ML VIAL IV ONE (18:43)
[2019-07-17] MEDS ORDERED: KETOROLAC 30 MG/ML VIAL IVP ONE (18:43)
[2019-07-17] MEDS: 0.9 % SODIUM CHLORIDE 1000ML 1,000 ML IV ONE (19:29)
[2019-07-17] MEDS ORDERED: METOCLOPRAMIDE HCL 10 MG/2 ML VIAL IVP PRN (20:08)
[2019-07-17] MEDS ORDERED: HYOSCYAMINE SULFATE ODT 0.125 MG TAB.SUBL SL PRN (20:14)
[2019-07-18] MEDS: 0.9 % SODIUM CHLORIDE 1000ML 1,000 ML IV ONE (02:33)
[2019-07-18] MEDS ORDERED: FAMOTIDINE 20MG TABLET PO ONE (08:36)
[2019-07-18] MEDS ORDERED: METOCLOPRAMIDE 10 MG TABLET PO ONE (08:37)
[2019-07-18] MEDS ORDERED: MECLIZINE 25 MG TABLET PO ONE (08:37)
[2019-07-18] MEDS ORDERED: ACETAMINOPHEN 1,000 MG/100 ML BTL IVPB ONE (09:00)
[2019-07-18] MEDS ORDERED: RINGERS SOLUTION,LACTATED 1,000 ML IV ONE ×2 (09:24→11:30)
[2019-07-18] MEDS ORDERED: METOPROLOL SUCC 25 MG TAB.ER PO SCH (10:00)
[2019-07-18] MEDS ORDERED: HYDROCHLOROTHIAZIDE 25 MG TABLET PO SCH (10:00)
[2019-07-18] MEDS ORDERED: LISINOPRIL 20 MG TABLET PO SCH (10:00)
--- NOTE | 2019-07-18 10:43 | History & Physical ---
History of Present Illness - Date of Service Date of Service for History & Physical: 07/18/19 - History of Present Illness Admitting Diagnosis: RUQ pain History of Present Illness: 69 yo male presents to [facility] ER for RUQ pain, suspicious for cholecystitis. Previous CT shows gallbladder sludge. Pt has been seen twice before for similar issues after eating pizza. Pt ate pizza last night and had RUQ pain. EKG baseline ventricular bigeminy, QTc 492 Pt given Zofran and Morphine for nausea/vomiting and abd pain. 07/17/19 07/17/19 16:48 17:16 Temperature 98.0 F Respiratory 18 Rate Blood Pressure 173/99 Blood Pressure Sitting Position Pulse Ox 97 Pain Intensity 8 Pain Scale Used Numeric (1 - 10 ) Laboratory Tests 07/17/19 07/17/19 17:00 17:00 WBC 11.4 RBC 4.49 Hgb 13.6 L Hct 40.1 L MCV 89.3 MCH 30.2 MCHC 33.9 RDW 13.3 Plt Count 157 Absolute Neutrophils 9.60 Sodium 135 L Potassium 3.9 Chloride 98 Carbon Dioxide 22.0 Anion Gap 15.0 BUN 17 Creatinine 1.0 Estimated GFR > 60 Random Glucose 209 H Calcium 9.2 Total Bilirubin 0.70 AST 20 ALT 17 Alkaline Phosphatase 49 Total Protein 7.3 Albumin 4.2 Globulin 3.1 Albumin/Globulin Ratio 1.4 Lipase 24 07/18/[address] Bejarano, in pre-op at time of admission. Meds were changed last night, d/c zofran r/t QT issues, given Reglan. Morphine 2mg IVP PRN for pain, pt to remain NPO as he is going to surgery this AM. pt reports his pain and nausea resolved at 2:30am with the medications and vows never to eat pizza again. Pt at bedside reports she will make sure he has a low fat, non spicy lifestyle s/p gallbladder removal. PCP [facility] Travel Screening - Travel/Exposure Within Last 30 Days Have you traveled within the last 30 days?: No - Travel/Exposure Within Last Year Have you traveled outside the [place] in the last year?: No - Additonal Travel Details Have you been exposed to anyone with a communicable illness?: No - Travel Symptoms Symptom Screening: None - Additional Travel Comment Additional Travel/Exposure Comment: [place] in [place] 05/2019 Review of Systems Constitutional: Denies: Chills, Fever, Malaise, Weakness Eyes: Denies: Eye discharge ENT: Denies: Congestion, Throat pain Respiratory: Denies: Cough, Dyspnea Cardiovascular: Denies: Chest pain, Palpitations, Syncope Endocrine: Denies: Fatigue, Polydipsia, Polyuria Gastrointestinal: Reports: As per HPI, Abdominal pain, Nausea, Vomiting. Denies: Diarrhea Genitourinary: Denies: Dysuria, Frequency, Hematuria Musculoskeletal: Denies: Arthralgia, Back pain, Myalgia Skin: Denies: Bruising, Change in color, Rash Neurological: Denies: Headache Psychiatric: Denies: Anxiety Hematological/Lymphatic: Denies: Easy bleeding, Easy bruising Past Medical History - SOCIAL HISTORY Smoking Status: Never smoker Alcohol Use: None - RESPIRATORY Hx Respiratory Disorders: Yes Hx Sleep Apnea: Yes Hx of CPAP: No (CANNOT WEAR DUE TO PANIC ATTACK WITH IT) - CARDIOVASCULAR Hx Cardio Disorders: Yes Hx Abnormal EKG: Yes (CHRONIC BIGEMINY) Hx Cardiac Cath: No Hx Chest Pain: No Hx CHF: No Hx Deep Vein Thrombosis: No Hx Edema: No Hx Heart Attack: No Hx Hypertension: Yes (CONTROLLED WITH MEDS) Hx Hypotension: No Hx Irregular Heartbeat: Yes Hx Palpitations: No Hx Pacemaker/Defib: No Hx Vascular Disease: No Hx Coronary Artery Disease: No Hx Coronary Artery Bypass Graft: No Hx Coronary Stent: No Hx Percutaneous Transluminal Coronary Angioplasty (PTCA): No - NEURO Hx Neuro Disorders: No - GI Hx GI Disorders: Yes Hx Abdominal Pain: Yes Hx Celiac Disease: No Hx Crohn's Disease: No Hx Diverticulitis: No Hx GI Bleed: No Hx Reflux: No Hx Hepatitis/Jaundice: No Hx Hiatal Hernia: No Hx Irritable Bowel: No Hx Liver Disease: No Hx Nausea/Vomiting: Yes Hx Obstructive Bowel: No Hx Pancreatitis: Yes (OCTOBER) Hx Rectal Bleeding: No Hx Ulcer: No Hx Wt Loss/Wt Gain: No Hx Cirrhosis: No Hx of Polyps: No Hx of Loss of Appetite: No - Hx Genitourinary Disorders: No - ENDOCRINE Hx Endocrine Disorders: Yes Hx Diabetes: Yes (TYPE II) Hx Thyroid Disease: No - MUSCULOSKELETAL Hx Musculoskeletal Disorders: Yes Hx Arthritis: Yes (HANDS) - PSYCH Hx Psych Problems: Yes Hx Depression: Yes (CONTROLLED WITH MEDS IF NEEDED) Hx Emotional Abuse: No Hx Suicide Attempt: No - HEMATOLOGY/ONCOLOGY 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) Family Medical History Hx Cancer: Mother Hx Heart Disease: Father Hx HTN: Brother/Sister H&P Meds/Allergies - Allergies Allergies: Allergies Allergy/AdvReac Type Severity Reaction Status Date / Time No Known Drug Allergies Allergy Verified 07/17/19 17:10 - Active Medications Active Medications: Current Medications Hydrochlorothiazide (Hctz 25mg) 25 mg PO DAILY TUAN Hyoscyamine (Levsin Odt) 0.125 mg SL Q4H PRN PRN Reason: ABDOMINAL PAIN Lisinopril (Zestril) 20 mg PO DAILY TUAN Metoclopramide HCl (Reglan) 10 mg IVP Q8H PRN PRN Reason: NAUSEA Last Admin: 07/17/19 20:41 Dose: 10 mg Documented by: Metoprolol Succinate (Toprol Xl) 25 mg PO DAILY TUAN Morphine Sulfate (Morphine Sulfate) 2 mg IVP Q2H PRN PRN Reason: PAIN - MILD TO MODERATE (1-7) Stop: 07/24/19 20:13 Last Admin: 07/17/19 20:39 Dose: 2 mg Documented by: Physical Exam - Vital Signs Vital Signs: Vital Signs - Last 24 Hrs Temp Pulse Resp BP BP BP Pulse Ox 07/18/19 09:14 98.1 F 69 14 136/65 96 07/18/19 06:00 98.7 F 87 18 117/66 95 07/18/19 03:00 98.9 F 76 16 130/80 94 L 07/17/19 20:03 36 L 07/17/19 19:27 116/65 07/17/19 18:43 99.1 F 36 L 12 160/78 99 07/17/19 18:38 47 L 18 164/80 97 07/17/19 16:48 98.0 F 18 173/99 97 - General General Appearance: Alert, Oriented x3, Cooperative, No acute distress Limitations: No limitations - Head Head exam: Atraumatic, Normal inspection - Eye Eye exam: Normal appearance, PERRL. negative: Conjunctival injection, Scleral icterus - ENT ENT exam: Normal exam Ear exam: Normal external inspection Nasal Exam: Normal inspection Mouth exam: Normal external inspection - Neck Neck exam: Normal inspection - Respiratory Respiratory exam: Normal lung sounds bilaterally. negative: Accessory muscle use, Decreased breath sounds, Prolonged expiratory, Respiratory distress, R honchi, Stridor, Wheezes - Cardiovascular Cardiovascular Exam: Other (Long standing bigemny, irregular at times). negative: Normal rhythm Peripheral Pulses: 2+: Radial (R), Radial (L) - GI/Abdominal GI/Abdominal exam: Soft, Normal bowel sounds, Tenderness (mild RUQ tenderness). negative: Distended, Guarding, Rebound, Rigid - Rectal Rectal exam: Deferred - exam: Deferred - Extremities Extremities exam: Normal inspection - Back Back exam: Denies: CVA tenderness (R), CVA tenderness (L) - Neurological Neurological exam: Alert, Oriented X3 - Psychiatric Psychiatric exam: Normal affect, Normal mood - Skin Skin exam: Dry, Intact, Normal color, Warm Results - Labs Result Diagrams: 07/17/19 17:00 07/17/19 17:00 Labs Last 24 Hours: Laboratory Results - last 24 hr 07/17/19 07/17/19 07/18/19 17:00 17:00 08:57 WBC 11.4 RBC 4.49 Hgb 13.6 L Hct 40.1 L MCV 89.3 MCH 30.2 MCHC 33.9 RDW 13.3 Plt Count 157 MPV 9.9 Neutrophils % 85.0 H Band Neutrophils % 0.0 Eosinophils % Not Reportable Basophils % Not Reportable Absolute Neutrophils 9.60 Lymphocytes 9.0 L Monocytes 6.0 Basophils 0.0 Eosinophil Count 0.0 Sodium 135 L Potassium 3.9 Chloride 98 Carbon Dioxide 22.0 Anion Gap 15.0 BUN 17 Creatinine 1.0 Estimated GFR > 60 POC Glucose 141 H Random Glucose 209 H Calcium 9.2 Total Bilirubin 0.70 AST 20 ALT 17 Alkaline Phosphatase 49 Total Protein 7.3 Albumin 4.2 Globulin 3.1 Albumin/Globulin Ratio 1.4 Lipase 24 VTE H&P Assessment - Risk for VTE Risk for VTE: Yes Risk Level: Moderate Risk Assessment Date: 07/18/19 Risk Assessment Time: 10:43 VTE Orders Placed or Will Be Placed: No VTE Reason for No Prophylaxis: Contraindicated (pt going to surgery this AM) Plan - Detailed Diagnosis and Plan (1) Cholecystitis Current Visit: Yes Status: Acute Base Code: K81.9 - CHOLECYSTITIS, UNSPECIFIED Comment: 07/18/19 -Dr Bejarano consulted this AM, pt is in pre-op and going to surgery this AM for cholecysectomy -Dr Bejarano plans to d/c pt from PACU -pt assessed in pre-op for this admission, pain free at the time -Prev CT abd shows gallbladder sludge, has been seen several times in 4 weeks for same symptoms caused by high fat meals (2) Bigeminy Current Visit: Yes Status: Acute Base Code: I49.9 - CARDIAC ARRHYTHMIA, UNSPECIFIED Comment: 07/18/19 -pt has h/o Kirill, sees Cardiology for this long standing, stable issue -EKGs show no recent changes, VSS (3) Full code status Current Visit: Yes Status: Acute Base Code: Z78.9 - OTHER SPECIFIED HEALTH S [facility] Comment: 07/18/19 full code (4) DVT prophylaxis Current Visit: Yes Status: Acute Base Code: Z29.9 - ENCOUNTER FOR PROPHYLACTIC MEASURES, UNSPECIFIED Comment: 07/18/19 no anticoagulation, pt having surgery this AM
[2019-07-18] MEDS ORDERED: BUPIVACAINE 0.25% W/EPI MPF 30ML VIAL SQ ONE (11:44)
[2019-07-18] MEDS ORDERED: HYDROCODONE/APAP 5/325MG TABLET PO ONE (12:35)
--- NOTE | 2019-07-18 16:16 | Discharge Note ---
VTE H&P Assessment - Risk for VTE Risk for VTE: Yes Risk Level: Moderate Risk Assessment Date: 07/18/19 Risk Assessment Time: 10:43 VTE Orders Placed or Will Be Placed: No VTE Reason for No Prophylaxis: Contraindicated (pt going to surgery this AM) Discharge Medications - Discharge Medications Home Medications: Ambulatory Orders Aspirin [Aspirin EC] 81 mg PO QHS 10/13/16 [Last Taken 1 Day Ago ~07/16/19] Lisinopril/Hydrochlorothiazide [Lisinopril-Hctz 20-25 mg Tab] 1 each PO DAILY 10/13/16 [Last Taken 07/16/19] Pioglitazone HCl [Actos] 30 mg PO DAILY 10/13/16 [Last Taken 07/17/19] C,E,Zinc,Copper 11/Bwfok1y/Lut [Ocuvite Adult 50 Plus Softgel] 1 cap PO DAILY 07/08/19 [Last Taken 1 Day Ago ~07/16/19] Metoprolol Succinate 25 mg PO DAILY 07/08/19 [Last Taken 07/16/19] Simvastatin 40 mg PO QHS 07/08/19 [Last Taken 07/16/19] Discharge Note - Date Date of Discharge Note: 07/18/19 Disposition: Home, Self-Care Condition: (2) Stable Additional Instructions: Pt d/c'd by Dr Bejarano from PACU, pls seen scanned paper d/c noted Referrals: Maikel Temple M.D., F.A.C.P. [Primary Care Provider] - Forms: Patient Portal Access
--- NOTE | 2019-07-20 08:32 | Operative Note ---
DATE OF SURGERY: 07/18/2019 SURGEON: Camacho Bejarano DO PREOPERATIVE DIAGNOSIS: Chronic cholecystitis. POSTOPERATIVE DIAGNOSIS: Acute on chronic cholecystitis. OPERATION: Laparoscopic cholecystectomy. INDICATION: The patient is a 68-year-old male who had about a month 's history of ongoing abdominal pain. He was hospitalized at [facility] for pancreatitis in the past. He did have sludge in his gallbladder. He came in with ongoing right subcostal postprandial pain, fatty food intolerance. CT scan done at his prior ER visit showed some gallbladder sludge. He had been in the ER on about 4 different occasions in the last month or so. We did discuss cholecystectomy versus medical management. He desired surgical intervention. Risks include but are not limited to bleeding, infection, ductal injury, possible conversion to open, postoperative bile leak. He understood this fully. PROCEDURE: Thereafter, consent was signed and questions answered. He was taken to the operating room and placed in a supine position. General anesthesia was administered per the department of anesthesia. The patient's abdomen was shaved of hair and prepped and draped in the usual sterile fashion. Adequate timeout was performed. He received preoperative antibiotic as well as DVT prophylaxis. At this time, the supraumbilical region was anesthetized with a total of 2 mL of 0.25% Sensorcaine with epinephrine. A 2 cm supraumbilical incision was made. This was carried down to the anterior rectus fascia. This was incised. Sheri clamps were placed on the fascial edges and brought up into the wound. Stay sutures of 0 Vicryl were placed. Posterior rectus sheath was identified and incised. The peritoneal cavity was entered bluntly. At this time, a 10 mm blunt Cy port was placed. Adequate pneumoperitoneum was established. Under direct visualization, additional 5 mm epigastric and two 5 mm right subcostal ports were placed. The patient was then rotated into steep reverse Trendelenburg with rotation to left. The gallbladder was almost enveloped entirely into his liver. This was noted to be thickened and inflamed, very difficult to grasp. Therefore, I did have to use a traumatic grasper. This was retracted in cephalad. This did rupture the gallbladder spilling clear bile consistent with gallbladder hydrops. The hepatocystic triangle was dissected. There was dense inflammation of the surrounding tissue. Blunt dissection as used. Visualization was not the greatest; therefore, I did switch to a dome down technique in which the liver was grasped, held anteriorly. The gallbladder was taken down in an antegrade fashion. I did cone down with an inferior dissection coning down to only 2 structures which were the cystic duct and cystic artery. There were no other gallbladder attachments whatsoever. The cystic artery was clipped and taken down with the MARIA ELENA Harmonic. I did place endoloops on the cystic duct, and this was then transected. This was placed in an EndoCatch bag and extracted through the umbilical port. Right upper quadrant was rechecked. I did irrigate approximately 2 liters of normal saline. We did change various positions of the patient as well. The gallbladder bed did ooze a bit. This was controlled with cautery as well as application of FloSeal. At this time, the patient was leveled out. The pneumoperitoneum was released. All ports were removed. The fascia was closed with 0 Vicryl in a [id number] fashion. The skin at all 4 ports was closed with 4-0 Vicryl. The patient was taken to the recovery room in stable condition. FINDINGS AT THE TIME OF SURGERY: Acute cholecystitis. MTDD
== END 2019-07-18 13:10 | disposition home or self-care (01) ==
LOC: ER 16:43 → SUR 18:42 → UNDOADMOB 18:42 → MEDSURG 18:42 → UNDODISOB 07-18 09:15 → SUR 07-18 09:15
PROVIDERS: ATTEND Surgery
DX: K81.1 Chronic cholecystitis (principal); R11.2 Nausea with vomiting, unspecified; I10 Essential (primary) hypertension; E11.9 Type 2 diabetes mellitus without complications
CPT/HCPCS: 36416; 80048; 80053; 80076; 81003; 82948; 83605; 83690; 84484; 85025; 85027; 86140; 93005; 93010; 96374; 96375; 96376; 99284; 99285; J0330; J1885; J2405; J2710; J2765; J7030; J7120

== ENCOUNTER 2019-07-25 08:58 | Emergency (ER) | payer MEDICARE, BC ==
[2019-07-25] MEDS ORDERED: ACETAMINOPHEN 1,000 MG/100 ML BTL IVPB ONE (09:16)
[2019-07-25 09:23] LABS: ABSOLUTE NEUTROPHIL COUNT 5.59; BASO % 0.3 % (0-6); EOS % 0.5 % (0-6); GRAN % 75.1 % (47-80); HEMATOCRIT 36.1 % (42.0-52.0); HEMOGLOBIN 12.1 gm/dl (14.0-18.0); LYMPH % 16.3 % (16-45); MEAN CELL VOLUME 90.3 fl (81-97); MEAN CORPUSCULAR HGB CONC 33.5 g/dl (32-36); MONO % 7.8 % (0-9); PLATELET COUNT 220 K/uL (130-400); RED CELL DISTRIBUTION WIDTH 12.7 % (11.5-14.5); WHITE BLOOD COUNT W/O DIFF 7.4 K/uL (4.2-12.2)
[2019-07-25 09:24] LABS: MEAN CORPUSCULAR HEMOGLOBIN 30.2 pg (27-33)
--- NOTE | 2019-07-25 09:24 | Emergency Department Record ---
History of Present Illness - General Chief complaint: Nausea, Vomiting, Diarrhea Stated complaint: N/V?abd pain Time Seen by Provider: 07/25/19 09:06 Source: Patient Mode of Arrival: Ambulatory Limitations: No limitations - History of Present Illness Initial comments: The patient is here due to a 3 day hx of frequent nausea, vomiting, and upper AP. The pain and vomiting are mainly after eating. He has a hx of this same issue for the last month and did have his GB removed here a week ago by Dr. Bejarano. The patient was discharged Thursday evening and was doing well until Thursday when the symptoms returned. The patient denies any fever, lower AP, back pain or diarrhea and he has had some normal BM's. The patient did call the office of Dr. Bejarano this AM and was told he was here so he came to the ER for a possible consultation. MD complaint: Abdominal pain, Nausea, Vomiting Onset/Timin -: Days(s) Improves with: None Worsens with: Eating Associated Symptoms: Nausea/vomiting - Related Data Allergies Allergy/AdvReac Type Severity Reaction Status Date / Time No Known Drug Allergies Allergy Verified 07/25/19 09:09 Travel Screening - Travel/Exposure Within Last 30 Days Have you traveled within the last 30 days?: No Review of Systems Constitutional: Denies: Chills, Fever Eyes: Denies: Eye discharge ENT: Denies: Congestion Respiratory: Denies: Cough, Dyspnea Cardiovascular: Denies: Chest pain Endocrine: Denies: Fatigue Gastrointestinal: Reports: Nausea, Vomiting Genitourinary: Denies: Hematuria Musculoskeletal: Denies: Back pain Skin: Denies: Bruising Past Medical History - SOCIAL HISTORY Smoking Status: Never smoker Alcohol Use: None Drug Use: None - RESPIRATORY Hx Respiratory Disorders: No - CARDIOVASCULAR Hx Cardio Disorders: Yes Hx Hypertension: Yes Hx Irregular Heartbeat: Yes (no treatment required per pt per cardilogist) Hx Palpitations: Yes (30 years ago, no treatment required, occurs occassional) - NEURO Hx Neuro Disorders: No - GI Hx GI Disorders: Yes Hx Abdominal Pain: Yes (went to ER last summer, no findings, has occured once 2 months ago) - Hx Genitourinary Disorders: No - ENDOCRINE Hx Endocrine Disorders: Yes Hx Diabetes: Yes - MUSCULOSKELETAL Hx Musculoskeletal Disorders: No - PSYCH Hx Psych Problems: Yes Hx Anxiety: Yes (had attack once6-8 months ago) - HEMATOLOGY/ONCOLOGY Hx Hematology/Oncology Disorders: Yes Hx Cancer: Yes (Skin (Nose)) Family Medical History Any Significant Family History?: Yes Hx Cancer: Mother Hx Heart Disease: Father Physical Exam - General General Appearance: Alert, Oriented x3, Cooperative, No acute distress - Head Head exam: Atraumatic, Normocephalic, Normal inspection - Eye Eye exam: Normal appearance, PERRL - Neck Neck exam: Normal inspection, Full ROM. negative: Tenderness - Respiratory Respiratory exam: Normal lung sounds bilaterally. negative: Respiratory distress - Cardiovascular Cardiovascular Exam: Regular rate, Normal rhythm, Normal heart sounds - GI/Abdominal GI/Abdominal exam: Soft, Normal bowel sounds, Tenderness (There is mild upper abdominal tenderness.). negative: Rebound, Rigid - Extremities Extremities exam: Normal inspection, Full ROM, Normal capillary refill. negative: Tenderness - Neurological Neurological exam: Alert. negative: Motor sensory deficit Course Vital Signs 07/25/19 09:06 Temperature 97.0 F L Pulse Rate 72 Respiratory 18 Rate Blood Pressure 129/70 Pulse Ox 95 - Reevaluation(s) Reevaluation #1: The patient is doing very well at this time. He is still having some pain but it is improved. I did discuss the labs and CT report with Dr. Bejarano and he would like the patient transfered to [facility]'s ER for admission. I then did discuss the case with Dr. Lei and she does accept the patient for transfer. 07/25/19 10:49 Medical Decision Making - Data Complexity MDM Data: Labs Ordered and/or Reviewed, X-Ray Ordered and/or Reviewed - Lab Data Result diagrams: 07/25/19 09:10 07/25/19 09:10 - Radiology Data Radiology results: Report reviewed (CT: Gas in GB fossa with small amounts of fluid and or inflammatory changes. No organized abscess or biloma suspected.) Disposition Disposition: Transfer Clinical Impression: Pancreatitis Qualifiers: Chronicity: acute Pancreatitis type: unspecified pancreatitis type Acute pancreatitis complication: unspecified Qualified Code(s): K85.90 - Acute pancreatitis without necrosis or infection, unspecified Disposition: Acute Care Hospital Transfer Transfer To: [facility] Reason For Transfer: Gen Surgery. Accepting Physician: Quique Time Discussed w/Accepting Physician: 10:52 Condition: (2) Stable Forms: Patient Portal Access Time of Disposition: 10:52 Quality - Quality Measures Quality Measures: N/A - Blood Pressure Screening View Details: Yes Does Patient Have Any of the Following: No Blood Pressure Classification: Pre-Hypertensive BP Reading Systolic Measurement: 129 Diastolic Measurement: 70 Screening for High Blood Pressure: < Pre-Hypertensive BP, F/U Documented > [G8950] Pre-Hypertensive Follow-up Interventions: Referral to alternative/primary care provider.
[2019-07-25] MEDS: ACETAMINOPHEN 1,000 MG/100 ML BTL IVPB ONE (09:29)
[2019-07-25] MEDS: 0.9 % SODIUM CHLORIDE 1,000 ML BAG IV ONE (09:29)
[2019-07-25] MEDS: ONDANSETRON HCL IV 4 MG/2 ML VIAL IV ONE (09:29)
[2019-07-25 09:33] LABS: BLOOD UREA NITROGEN 20 mg/dL (8-23); CREATININE 1.2 mg/dL (0.7-1.2); EST GLOMERULAR FILTRATION RATE > 60 mL/min
[2019-07-25 09:34] LABS: TOTAL PROTEIN 7.1 g/dL (6.6-8.7)
[2019-07-25 09:36] LABS: GLUCOSE,RANDOM 205 mg/dL (74-109)
[2019-07-25 09:38] LABS: ALBUMIN 3.9 g/dL (4.0-5.0); ALT/SGPT 62 U/L (<41); AST/SGOT 86 U/L (10.0-50.0); BILIRUBIN,DIRECT 0.5 mg/dL (0-0.3)
[2019-07-25 09:39] LABS: ALKALINE PHOSPHATASE 188 U/L (40-129)
[2019-07-25 09:46] LABS: LIPASE 2284 U/L (13-60)
[2019-07-25 09:50] LABS: URINE APPEARANCE CLEAR; URINE BILIRUBIN NEGATIVE (NEGATIVE); URINE BLOOD NEGATIVE (NEGATIVE); URINE COLOR YELLOW; URINE GLUCOSE (UA) NEGATIVE (NEGATIVE); URINE KETONE NEGATIVE (NEGATIVE); URINE LEUKOCYTE ESTERASE NEGATIVE (NEGATIVE); URINE NITRITE NEGATIVE (NEGATIVE); URINE PROTEIN NEGATIVE (NEGATIVE); URINE UROBILINOGEN 0.2 E.U./dL (0.20 - 1.00)
[2019-07-25] MEDS: MORPHINE SULFATE 5 MG/ML VIAL IVP ONE (10:29)
--- NOTE | 2019-07-25 10:34 | CT SCAN REPORT ---
EXAMINATION: CT Abdomen and Pelvis without IV Contrast EXAM DATE: 07/25/2019 10:07 AM TECHNIQUE: Standard protocol CT imaging of the abdomen and pelvis was performed without intravenous c ontrast. INDICATION: upper abdominal pain S/P gallbladder surgery COMPARISON: July 08, 2019 ENCOUNTER: Not applicable CT ABDOMEN AND PELVIS FINDINGS: Lung Bases: Stable tiny calcified granuloma left lower lobe. No new airspace disease. Hepatobiliary: The liver has a normal size with a smooth surface. Evidence of interval cholecystecto my. Multiple gas foci and isodensity noted within the gallbladder fossa compatible with recent postsu rgical changes. There could be a small amount of fluid and/or inflammation within this area of multif ocal gas at the gallbladder fossa. No evidence of well organized abscess or biloma suspected at this time. Pancreas: The pancreas is normal. Spleen: Tiny calcified granulomas. No enlargement. No suspicious lesion. Adrenals: There is a 1.8 x 1.7 cm benign left adrenal adenoma. Normal right adrenal gland. Kidneys, Ureters, & Bladder: Both kidneys have a normal size and morphology. There is an anterolatera l 2.2 cm upper pole right renal cyst as before. Mild bilateral nonspecific perinephric stranding as b efore. There is no hydronephrosis. No renal calculi are present. Both ureters have a normal course an d caliber and the urinary bladder a normal morphology and uniform wall thickness. Although evaluation of bladder is somewhat limited given its decompressed state. No ureteral or bladder calculi are iden tified. Gastrointestinal: There is a small medially projecting duodenal diverticulum measuring 1.6 cm from th e second portion of the duodenum. No small bowel distention or wall thickening. The appendix is vanessa l. There is diverticular disease involving primarily the left colon and sigmoid segment with no assoc iated inflammation. The large bowel is otherwise unremarkable. Reproductive Organs: Unremarkable Lymphatic System: Mildly enlarged left periaortic retroperitoneal lymph node measures 1.1 cm in great est short axis dimension increased from 0.7 cm previously. Mildly enlarged 1.1 cm portal caval lymph node compared to 1.0 cm previously. Vasculature: Normal caliber abdominal aorta Peritoneum: No free fluid, free air, or inflammation Abdominal wall & Musculoskeletal: No suspicious bone lesions. Mild periumbilical inflammatory changes with small focus of umbilical subcutaneous gas likely from recent laparoscopic cholecystectomy. Assessment of the solid organs, soft tissues, and vascular structures is overall limited on noncontra st imaging, IMPRESSION: Multifocal gas noted in the gallbladder fossa in combination with small amounts of fluid and/or infla mmatory changes at the gallbladder fossa. No organized abscess or biloma suspected at this time. Prob ably postsurgical inflammatory changes and residual gas at the gallbladder fossa. No free fluid. Roberto Carlos y organizing abscess at the gallbladder fossa would be difficult to fully exclude. Mildly enlarged left retroperitoneal periaortic lymph node has increased. Mildly enlarged portal cava l lymph node has slightly increased. Other incidental findings as above. Dictated by: Tone Navas DO on 07/25/2019 10:17 AM. .
== END 2019-07-25 11:32 | disposition short-term general hospital (02) ==
LOC: ER 08:58
DX: K85.90 Acute pancreatitis without necrosis or infection, unspecified (principal); R10.10 Upper abdominal pain, unspecified; R11.2 Nausea with vomiting, unspecified; Z90.49 Acquired absence of other specified parts of digestive tract; I10 Essential (primary) hypertension
CPT/HCPCS: 99285 ×2; 96365; 96375; 96361; 83690; 85025; 80076; 80048; 81003; 74176; J2405; J7030